=== PATIENT | male | born 1960 | race Caucasian/White ===

== ENCOUNTER → 2023-08-25 10:28 | Outpatient (REF) | payer OTHER, SELFPAY ==
[2023-08-25 15:57] LABS: Mumps Virus IgG Positive; Rubeola (Measles) IgG Positive; Varicella Zoster IgG (VZV) Positive
[2023-08-25 19:28] LABS: Hepatitis B Surface Antibody Positive
[2023-08-25 19:45] LABS: Rubella Positive
[2023-08-27 14:53] LABS: Quantiferon Mitogen minus NIL 8.17 IU/mL; Quantiferon NIL 0.02 IU/mL; Quantiferon TB Gold Plus Negative (Negative)
== END ==
LOC: OHS 10:28
PROVIDERS: ATTENDING PHYSICIAN Nurse Practitioner Family
DX: Z23 Encounter for immunization (principal)
CPT/HCPCS: 36415; 86480; 86706; 86735; 86762; 86765; 86787